=== PATIENT | male | born 1955 | race Caucasian/White ===

== ENCOUNTER 2018-11-08 13:17 | Emergency (ER) | payer MEDICARE, OTHER ==
[~2018-11-08] VITALS: Ht 180.3 cm; Wt 83.9 kg
[~2018-11-08 13:17] MED LIST: ADVAIR 500-501 EACH; AMLODIPINE BESY10 MG; CAL-CITRATE PL1 EACH; COMBIVENT RESPIM4 GM INH; DICLEGIS DR 101 EACH; DICLOFENAC SOD100 GM TOP; DOXYCYCLINE HY100 MG PO; FAMOTIDINE40 MG PO; FENTANYL1 EAC2 TD; FOSAMAX70 MG; GEMFIBROZIL600 MG; HYDROCHLOROTH12.5 MG; LISINOPRIL20 MG; NAPROSYN500 MG PO; PERCOCET 10-321 EACH PO; PREDNISONE20 MG PO; SPIRIVA18 MCG; ZOLOFT100 MG; [UNRECOGNIZED DRUG - OTHER]
[2018-11-08] MEDS ORDERED: ADVAIR 500-501 EACH INH ×2 (14:27→15:08)
[2018-11-08] MEDS ORDERED: VENTOLIN HFA18 GM INH (14:28)
[2018-11-08] MEDS ORDERED: DOXYCYCLINE HY100 MG PO (15:08)
[2018-11-08] MEDS ORDERED: PREDNISONE10 MG PO (15:08)
== END 2018-11-08 17:07 | disposition home or self-care (01) ==
LOC: ED 13:17
DX: J10.1 Influenza due to other identified influenza virus with other respiratory manifestations (principal); J44.9 Chronic obstructive pulmonary disease, unspecified; Z87.891 Personal history of nicotine dependence; Z88.5 Allergy status to narcotic agent; Z88.8 Allergy status to other drugs, medicaments and biological substances; Z79.899 Other long term (current) drug therapy
CPT/HCPCS: 71045; 87502; 94640; 94664; 99285-25; J7512

== ENCOUNTER 2020-04-13 03:00 | Emergency (ER) | payer MEDICARE, OTHER ==
[~2020-04-13] VITALS: Ht 180.3 cm; Wt 83.9 kg
[~2020-04-13 03:00] MED LIST changes: +ADVAIR 500-501 EACH INH; +PREDNISONE10 MG PO; +VENTOLIN HFA18 GM INH
[2020-04-13] MEDS ORDERED: LISINOPRIL20 MG PO (03:14)
--- NOTE | 2020-04-13 12:18 | EKG ---
[facility] [address] [facility] [facility] [place] [address] Signed Normal sinus rhythm Normal ECG No previous ECGs available Confirmed by SAGAR MURDOCK MD ([id number]) on 04/13/2020 12:17:53 PM Electronically Signed By: SAGAR MURDOCK MD 04/13/20 1218 PATIENT NAME: ALTON DOLAN Elina Electrocardiogram DATE OF : 51 PHYSICIAN: SAGAR MURDOCK MD REPORT #: [id number] REPORT IS CONFIDENTIAL AND NOT TO BE RELEASED WITHOUT AUTHORIZATION
== END 2020-04-13 03:33 | disposition home or self-care (01) ==
LOC: ED 03:00
DX: J44.1 Chronic obstructive pulmonary disease with (acute) exacerbation (principal); Z87.891 Personal history of nicotine dependence; Z88.6 Allergy status to analgesic agent; Z79.899 Other long term (current) drug therapy
CPT/HCPCS: 93005; 93010; 99284-25

== ENCOUNTER 2023-04-05 09:11 | Emergency (ER) | payer MEDICARE ==
[~2023-04-05] VITALS: Ht 180.3 cm; Wt 68.9 kg
--- OUTSIDE RECORDS SUMMARY | ~2023-04-05 | XMS | Continuity of Care Document ---
Demographics + + + | Address | [address] | | | [place] [address] | + + + | Preferred Language | Unknown | + + + | Marital Status | | + + + | Nondenominational Affiliation | Unknown | + + + | Race | White | + + + | Ethnic Group | Not or | + + + Author + + + | Author | [facility] | + + + | Organization | [facility] | + + + | Address | [address] | | | [place] [address] | + + + | Phone | | + + + Care Team Providers + + + + | Care Director Of Patient Care Name | Role | Phone | + + + + Unavailable | Unavailable | + + + + Unavailable | Unavailable | + + + + Allergies and Intolerances + + + + + + | date | description | facility | reaction | severity | + + + + + + | (no date) | Tramadol | [facility] | (no reaction) | (no severity) | | | | Loc | | | | | | Hospital | | | + + + + + + | (no date) | Gabapentin | [facility] | (no reaction) | (no severity) | | | | Loc | | | | | | Hospital | | | + + + + + + | (no date) | Tramadol | [facility] | (no reaction) | (no severity) | | | | Loc | | | | | | Hospital | | | + + + + + + | (no date) | Gabapentin | [facility] | (no reaction) | (no severity) | | | | Loc | | | | | | Hospital | | | + + + + + + | (no date) | Tramadol | [facility] | (no reaction) | (no severity) | | | | Loc | | | | | | Hospital | | | + + + + + + | (no date) | Nausea alone | [facility] | (no reaction) | (no severity) | | | | Loc | | | | | | Hospital | | | + + + + + + | (no date) | Gabapentin | [facility] | (no reaction) | (no severity) | | | | Loc | | | | | | Hospital | | | + + + + + + | (no date) | No Known Drug | [facility] | (no reaction) | (no severity) | | | Allergies | | | | + + + + + + | (no date) | tramadol | [facility] | (no reaction) | (no severity) | + + + + + + | (no date) | gabapentin | [facility] | (no reaction) | (no severity) | + + + + + + Encounters No information. Functional Status No information. Immunizations No information. Medications + + + + | date | description | facility | + + + + | 2023-02-23 00:00 | OXYCODONE | [facility] | | | HCL/ACETAMINOPHEN | | + + + + | 2014-03-16 00:00 | IPRATROPIUM/ALBUTEROL | [facility] | | | SULFATE | | + + + + | 2018-11-08 00:00 | DOXYCYCLINE HYCLATE | [facility] | + + + + | 2014-03-16 00:00 | DOXYCYCLINE HYCLATE | [facility] | + + + + | 2023-02-23 00:00 | FENTANYL (75 MCG/HR) | [facility] | + + + + | 2018-11-08 00:00 | predniSONE | [facility] | + + + + | 2023-02-23 00:00 | SERTRALINE HCL | [facility] | + + + + | 2023-02-23 00:00 | FAMOTIDINE | [facility] | + + + + | 2023-02-23 00:00 | AMLODIPINE BESYLATE | [facility] | + + + + | 2023-02-23 00:00 | GEMFIBROZIL | [facility] | + + + + | 2014-03-16 00:00 | predniSONE | [facility] | + + + + | 2023-02-23 00:00 | LISINOPRIL | [facility] | + + + + | 2023-02-23 00:00 | HYDROCHLOROTHIAZIDE | [facility] | + + + + | 2023-02-23 00:00 | CALCIUM CITRATE/VITAMIN D2 | [facility] | | | | | + + + + | 2023-02-23 00:00 | TIOTROPIUM BROMIDE | [facility] | + + + + | 2023-02-23 00:00 | DICLOFENAC SODIUM | [facility] | + + + + | 2023-02-23 00:00 | ALBUTEROL SULFATE | [facility] | + + + + | 2023-02-23 00:00 | METOPROLOL TARTRATE | [facility] | + + + + | 2018-11-08 00:00 | FLUTICASONE/SALMETEROL | [facility] | + + + + | 2023-02-23 00:00 | FLUTICASONE/SALMETEROL | [facility] | + + + + | 2023-02-23 00:00 | ALENDRONATE SODIUM | [facility] | + + + + Problems + + + + | date | description | facility | + + + + | 2018-11-08 00:00 | Influenza | [facility] | + + + + | 2020-04-13 00:00 | Acute exacerbation of | [facility] | | | chronic obstructive | | | | pulmonary disease | | + + + + | 2023-02-23 00:00 | Dehydration | [facility] | + + + + | 2023-02-23 18:53 | DEHYDRATION | [facility] | + + + + | 2023-02-23 18:53 | Essential (primary) | [facility] | | | hypertension | | + + + + | 2023-02-23 18:53 | HYPERTENSIVE URGENCY | [facility] | + + + + | 2023-02-23 18:53 | CHRONIC OBSTRUCTIVE | [facility] | | | PULMONARY DISEASE, | | | | UNSPECIFIED | | + + + + | 2023-02-23 18:53 | PALPITATIONS | [facility] | + + + + | 2023-02-23 18:53 | AGILE COACH (CURRENT) USE OF | [facility] | | | INHALED STEROIDS | | + + + + | 2023-02-23 18:53 | OTHER SHELTER (CURRENT) | [facility] | | | DRUG THERAPY | | + + + + | 2023-02-23 18:53 | 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 Results/Labs +--------+--------+ +---------+--------+---------+ | test | date | facility | value | unit | notes | +--------+--------+ +---------+--------+---------+ + + | Result panel 1 | + + + + + +-------+ + + | | 2023-02-23 | [facility] | 7.5 | (missing) | (missing) | | (unavailable | 19:08:07 | Loc | | | | | ) | | Hospital | | | | + + + +-------+ + + + + | Result panel 2 | + + + + + +--------+ + + | | 2023-02-23 | [facility] | 63.9 | (missing) | (missing) | | (unavailable | 19:08:07 | Loc | | | | | ) | | Hospital | | | | + + + +--------+ + + + + | Result panel 3 | + + + + + +--------+ + + | | 2023-02-23 | [facility] | 24.9 | (missing) | (missing) | | (unavailable | 19:08:07 | Loc | | | | | ) | | Hospital | | | | + + + +--------+ + + + + | Result panel 4 | + + + + + +--------+ + + | | 2023-02-23 | [facility] | 10.1 | (missing) | (missing) | | (unavailable | 19:08:07 | Loc | | | | | ) | | Hospital | | | | + + + +--------+ + + + + | Result panel 5 | + + + + + +-------+ + + | | 2023-02-23 | [facility] | 0.5 | (missing) | (missing) | | (unavailable | 19:08:07 | Loc | | | | | ) | | Hospital | | | | + + + +-------+ + + + + | Result panel 6 | + + + + + +-------+ + + | | 2023-02-23 | [facility] | 0.6 | (missing) | (missing) | | (unavailable | 19:08:07 | Loc | | | | | ) | | Hospital | | | | + + + +-------+ + + + + | Result panel 7 | + + + + + +--------+ + + | | 2023-02-23 | [facility] | 0.64 | (missing) | (missing) | | (unavailable | 19:08:07 | Loc | | | | | ) | | Hospital | | | | + + + +--------+ + + + + | Result panel 8 | + + + + + +--------+ + + | | 2023-02-23 | [facility] | 4.39 | (missing) | (missing) | | (unavailable | 19:08:07 | Loc | | | | | ) | | Hospital | | | | + + + +--------+ + + + + | Result panel 9 | + + + + + +-------+---------+ + | | 2023-02-23 | [facility] | 126 | mg/dL | (missing) | | (unavailable | 19:08:07 | Loc | | | | | ) | | Hospital | | | | + + + +-------+---------+ + + + | Result panel 10 | + + + + + +------+---------+ + | | 2023-02-23 | [facility] | 22 | mg/dL | (missing) | | (unavailable | ::07 | Loc | | | | | ) | | Hospital | | | | + + + +------+---------+ + + + | Result panel 11 | + + + + + +--------+ + + | | 2023-02-23 | [facility] | 13.5 | (missing) | (missing) | | (unavailable | 19:08:07 | Loc | | | | | ) | | Hospital | | | | + + + +--------+ + + + + | Result panel 12 | + + + + + +--------+---------+ + | | 2023-02-23 | [facility] | 0.96 | mg/dL | (missing) | | (unavailable | 19:08:07 | Loc | | | | | ) | | Hospital | | | | + + + +--------+---------+ + + + | Result panel 13 | + + + + + +------+ + + | | 2023-02-23 | [facility] | 86 | (missing) | (missing) | | (unavailable | 19:08:07 | Loc | | | | | ) | | Hospital | | | | + + + +------+ + + + + | Result panel 14 | + + + + + +---------+ + + | | 2023-02-23 | [facility] | 22.91 | (missing) | (missing) | | (unavailable | 19:08:07 | Loc | | | | | ) | | Hospital | | | | + + + +---------+ + + + + | Result panel 15 | + + + + + +-------+ + + | | 2023-02-23 | [facility] | 137 | (missing) | (missing) | | (unavailable | 19:08:07 | Loc | | | | | ) | | Hospital | | | | + + + +-------+ + + + + | Result panel 16 | + + + + + +-------+ + + | | 2023-02-23 | [facility] | 3.7 | (missing) | (missing) | | (unavailable | 19:08:07 | Loc | | | | | ) | | Hospital | | | | + + + +-------+ + + + + | Result panel 17 | + + + + + +-------+ + + | | 2023-02-23 | [facility] | 101 | (missing) | (missing) | | (unavailable | 19:08:07 | Loc | | | | | ) | | Hospital | | | | + + + +-------+ + + + + | Result panel 18 | + + + + + +------+ + + | | 2023-02-23 | [facility] | 23 | (missing) | (missing) | | (unavailable | 19:08:07 | Loc | | | | | ) | | Hospital | | | | + + + +------+ + + + + | Result panel 19 | + + + + + +--------+ + + | | 2023-02-23 | [facility] | 16.7 | (missing) | (missing) | | (unavailable | 19:08:07 | Loc | | | | | ) | | Hospital | | | | + + + +--------+ + + + + | Result panel 20 | + + + + + +-------+---------+ + | | 2023-02-23 | [facility] | 9.0 | mg/dL | (missing) | | (unavailable | 19:08:07 | Loc | | | | | ) | | Hospital | | | | + + + +-------+---------+ + + + | Result panel 21 | + + + + + +-------+---------+ + | | 2023-02-23 | [facility] | 2.1 | mg/dL | (missing) | | (unavailable | 19:08:07 | Loc | | | | | ) | | Hospital | | | | + + + +-------+---------+ + + + | Result panel 22 | + + + + + +--------+ + + | | 2023-02-23 | [facility] | 41.8 | (missing) | (missing) | | (unavailable | 19:08:07 | Loc | | | | | ) | | Hospital | | | | + + + +--------+ + + + + | Result panel 23 | + + + + + +-------+ + + | | 2023-02-23 | [facility] | 8.5 | (missing) | (missing) | | (unavailable | 19:08:07 | Loc | | | | | ) | | Hospital | | | | + + + +-------+ + + + + | Result panel 24 | + + + + + +-------+ + + | | 2023-02-23 | [facility] | 4.4 | (missing) | (missing) | | (unavailable | 19:08:07 | Loc | | | | | ) | | Hospital | | | | + + + +-------+ + + + + | Result panel 25 | + + + + + +-------+ + + | | 2023-02-23 | [facility] | 4.1 | (missing) | (missing) | | (unavailable | 19:08:07 | Loc | | | | | ) | | Hospital | | | | + + + +-------+ + + + + | Result panel 26 | + + + + + +--------+ + + | | 2023-02-23 | [facility] | 1.07 | (missing) | (missing) | | (unavailable | 19:08:07 | Loc | | | | | ) | | Hospital | | | | + + + +--------+ + + + + | Result panel 27 | + + + + + +-------+ + + | | 2023-02-23 | [facility] | 0.9 | (missing) | (missing) | | (unavailable | 19:08:07 | Loc | | | | | ) | | Hospital | | | | + + + +-------+ + + + + | Result panel 28 | + + + + + +------+ + + | | 2023-02-23 | [facility] | 31 | (missing) | (missing) | | (unavailable | 19::07 | Loc | | | | | ) | | Hospital | | | | + + + +------+ + + + + | Result panel 29 | + + + + + +------+ + + | | 2023-02-23 | [facility] | 21 | (missing) | (missing) | | (unavailable | 19::07 | Loc | | | | | ) | | Hospital | | | | + + + +------+ + + + + | Result panel 30 | + + + + + +------+ + + | | 2023-02-23 | [facility] | 87 | (missing) | (missing) | | (unavailable | ::07 | Loc | | | | | ) | | Hospital | | | | + + + +------+ + + + + | Result panel 31 | + + + + + +--------+ + + | | 2023-02-23 | [facility] | 11.6 | (missing) | (missing) | | (unavailable | 19:08:07 | Loc | | | | | ) | | Hospital | | | | + + + +--------+ + + + + | Result panel 32 | + + + + + +---------+ + + | | 2023-02-23 | [facility] | 1.801 | (missing) | (missing) | | (unavailable | 19:08:07 | Loc | | | | | ) | | Hospital | | | | + + + +---------+ + + + + | Result panel 33 | + + + + + +--------+ + + | | 2023-02-23 | [facility] | 95.3 | (missing) | (missing) | | (unavailable | 19:08:07 | Loc | | | | | ) | | Hospital | | | | + + + +--------+ + + + + | Result panel 34 | + + + + + +--------+ + + | | 2023-02-23 | [facility] | 30.7 | (missing) | (missing) | | (unavailable | 19:08:07 | Loc | | | | | ) | | Hospital | | | | + + + +--------+ + + + + | Result panel 35 | + + + + + +--------+ + + | | 2023-02-23 | [facility] | 32.2 | (missing) | (missing) | | (unavailable | 19:08:07 | Loc | | | | | ) | | Hospital | | | | + + + +--------+ + + + + | Result panel 36 | + + + + + +--------+ + + | | 2023-02-23 | [facility] | 13.4 | (missing) | (missing) | | (unavailable | 19:08:07 | Loc | | | | | ) | | Hospital | | | | + + + +--------+ + + + + | Result panel 37 | + + + + + +-------+ + + | | 2023-02-23 | [facility] | 280 | (missing) | (missing) | | (unavailable | 19:08:07 | Loc | | | | | ) | | Hospital | | | | + + + +-------+ + + + + | Result panel 38 | + + + + + + + + + | | 2023-02-23 | [facility] | YELLOW | (missing) | (missing) | | (unavailable | 20:10:07 | Loc | | | | | ) | | Hospital | | | | + + + + + + + + + | Result panel 39 | + + + + + +---------+ + + | | 2023-02-23 | [facility] | CLEAR | (missing) | (missing) | | (unavailable | 20:10:07 | Loc | | | | | ) | | Hospital | | | | + + + +---------+ + + + + | Result panel 40 | + + + + + + + + + | | 2023-02-23 | [facility] | NEGATIVE | (missing) | (missing) | | (unavailable | 20:10:07 | Loc | | | | | ) | | Hospital | | | | + + + + + + + + + | Result panel 41 | + + + + + + + + + | | 2023-02-23 | [facility] | NEGATIVE | (missing) | (missing) | | (unavailable | 20:10:07 | Loc | | | | | ) | | Hospital | | | | + + + + + + + + + | Result panel 42 | + + + + + + + + + | | 2023-02-23 | [facility] | NEGATIVE | (missing) | (missing) | | (unavailable | 20:10:07 | Loc | | | | | ) | | Hospital | | | | + + + + + + + + + | Result panel 43 | + + + + + + + + + | | 2023-02-23 | [facility] | >=1.030 | (missing) | (missing) | | (unavailable | 20:10:07 | Loc | | | | | ) | | Hospital | | | | + + + + + + + + + | Result panel 44 | + + + + + + + + + | | 2023-02-23 | [facility] | NEGATIVE | (missing) | (missing) | | (unavailable | 20:10:07 | Loc | | | | | ) | | Hospital | | | | + + + + + + + + + | Result panel 45 | + + + + + +-------+ + + | | 2023-02-23 | [facility] | 5.0 | (missing) | (missing) | | (unavailable | 20:10:07 | Loc | | | | | ) | | Hospital | | | | + + + +-------+ + + + + | Result panel 46 | + + + + + + + + + | | 2023-02-23 | [facility] | NEGATIVE | (missing) | (missing) | | (unavailable | 20:10:07 | Loc | | | | | ) | | Hospital | | | | + + + + + + + + + | Result panel 47 | + + + + + + + + + | | 2023-02-23 | [facility] | NORMAL | (missing) | (missing) | | (unavailable | 20:10:07 | Loc | | | | | ) | | Hospital | | | | + + + + + + + + + | Result panel 48 | + + + + + + + + + | | 2023-02-23 | [facility] | NEGATIVE | (missing) | (missing) | | (unavailable | 20:10:07 | Loc | | | | | ) | | Hospital | | | | + + + + + + + + + | Result panel 49 | + + + + + + + + + | | 2023-02-23 | [facility] | NEGATIVE | (missing) | (missing) | | (unavailable | 20:10:07 | Loc | | | | | ) | | Hospital | | | | + + + + + + + + + | Result panel 50 | + + + + + + + + + | | 2023-02-23 | [facility] | NEGATIVE | (missing) | (missing) | | (unavailable | 20:10:07 | Loc | | | | | ) | | Hospital | | | | + + + + + + + + + | Result panel 51 | + + + + + + + + + | | 2023-02-23 | [facility] | NEGATIVE | (missing) | (missing) | | (unavailable | 20:10:07 | Loc | | | | | ) | | Hospital | | | | + + + + + + + + + | Result panel 52 | + + + + + + + + + | | 2023-02-23 | [facility] | NEGATIVE | (missing) | (missing) | | (unavailable | 20:10:07 | Loc | | | | | ) | | Hospital | | | | + + + + + + + + + | Result panel 53 | + + + + + + + + + | | 2023-02-23 | [facility] | NEGATIVE | (missing) | (missing) | | (unavailable | 20:10:07 | Loc | | | | | ) | | Hospital | | | | + + + + + + + + + | Result panel 54 | + + + + + + + + + | | 2023-02-23 | [facility] | NEGATIVE | (missing) | (missing) | | (unavailable | 20:10:07 | Loc | | | | | ) | | Hospital | | | | + + + + + + + + + | Result panel 55 | + + + + + + + + + | | 2023-02-23 | [facility] | NEGATIVE | (missing) | (missing) | | (unavailable | 20:10:07 | Loc | | | | | ) | | Hospital | | | | + + + + + + + + + | Result panel 56 | + + + + + + + + + | | 2023-02-23 | [facility] | NEGATIVE | (missing) | (missing) | | (unavailable | 20:10:07 | Loc | | | | | ) | | Hospital | | | | + + + + + + + + + | Result panel 57 | + + + + + + + + + | | 2023-02-23 | [facility] | POSITIVE | (missing) | (missing) | | (unavailable | 20:10:07 | Loc | | | | | ) | | Hospital | | | | + + + + + + + + + | Result panel 58 | + + + + + + + + + | | 2023-02-23 | [facility] | NEGATIVE | (missing) | (missing) | | (unavailable | 20:10:07 | Loc | | | | | ) | | Hospital | | | | + + + + + + + + + | Result panel 59 | + + + + + + + + + | | 2023-02-23 | [facility] | NEGATIVE | (missing) | (missing) | | (unavailable | 20:10:07 | Loc | | | | | ) | | Hospital | | | | + + + + + + + + + | Result panel 60 | + + + + + + + + + | | 2023-02-23 | [facility] | POSITIVE | (missing) | (missing) | | (unavailable | 20:10:07 | Loc | | | | | ) | | Hospital | | | | + + + + + + + + + | Result panel 61 | + + + + + + + + + | | 2023-02-23 | [facility] | NEGATIVE | (missing) | (missing) | | (unavailable | 20:10:07 | Loc | | | | | ) | | Hospital | | | | + + + + + + + + + | Result panel 62 | + + + + + + + + + | | 2023-02-23 | [facility] | NEGATIVE | (missing) | (missing) | | (unavailable | 20:10:07 | Loc | | | | | ) | | Hospital | | | | + + + + + + + Social History No information. Vital Signs + + + +---------+ | date | measurement | value | units | + + + +---------+ | 2023-02-23 00:00 | BMI | 25.8 | kg/m2 | + + + +---------+ | 2023-02-23 00:00 | BP_diastolic | 107 | mmHg | + + + +---------+ | 2023-02-23 00:00 | BP_systolic | 187 | mmHg | + + + +---------+ | 2023-02-23 00:00 | heart_rate | 98 | /min | + + + +---------+ | 2023-02-23 00:00 | height_metric | 180.34 | cm | + + + +---------+ | 2023-02-23 00:00 | height_standard | 71 | in | + + + +---------+ | 2023-02-23 00:00 | o2_saturation | 100 | % | + + + +---------+ | 2023-02-23 00:00 | respiration_rate | 18 | /min | + + + +---------+ | 2023-02-23 00:00 | temperature_metric | 37.06 | C | | | | | | + + + +---------+ | 2023-02-23 00:00 | | 98.7 | F | | | temperature_standar | | | | | d | | | + + + +---------+ | 2023-02-23 00:00 | weight_metric | 83.91 | kg | + + + +---------+ | 2023-02-23 00:00 | weight_metric | 83.92 | kg | + + + +---------+ | 2023-02-23 00:00 | weight_standard | 185 | lb | + + + +---------+"
--- OUTSIDE RECORDS SUMMARY | ~2023-04-05 | XMS | Continuity of Care Document ---
Demographics + + + | Address | [address] | | | [place] [address] | + + + | Preferred Language | Unknown | + + + | Marital Status | | + + + | Latter-Day Affiliation | Unknown | + + + | Race | White | + + + | Ethnic Group | Not or | + + + Author + + + | Author | [facility] | + + + | Organization | [facility] | + + + | Address | [address] | | | [place] [address] | + + + | Phone | | + + + Care Team Providers + + + + | Care Explosive Technician Name | Role | Phone | + [...] + | 2023-02-23 00:00 | OXYCODONE | [facility] | | | HCL/ACETAMINOPHEN | | + + + + | 2014-03-16 00:00 | IPRATROPIUM/ALBUTEROL | [facility] | | | SULFATE | | + + + + | 2018-11-08 00:00 | DOXYCYCLINE HYCLATE | [facility] | + + + + | 2014-03-16 00:00 | DOXYCYCLINE HYCLATE | [facility] | + + + + | 2023-02-23 00:00 | FENTANYL (75 MCG/HR) | [facility] | + + + + | 2018-11-08 00:00 | predniSONE | [facility] | + + + + | 2023-02-23 00:00 | SERTRALINE HCL | [facility] | + + + + | 2023-02-23 00:00 | FAMOTIDINE | [facility] | + + + + | 2023-02-23 00:00 | AMLODIPINE BESYLATE | [facility] | + + + + | 2023-02-23 00:00 | GEMFIBROZIL | [facility] | + + + + | 2014-03-16 00:00 | predniSONE | [facility] | + + + + | 2023-02-23 00:00 | LISINOPRIL | [facility] | + + + + | 2023-02-23 00:00 | HYDROCHLOROTHIAZIDE | [facility] | + + + + | 2023-02-23 00:00 | CALCIUM CITRATE/VITAMIN D2 | [facility] | | | | | + + + + | 2023-02-23 00:00 | TIOTROPIUM BROMIDE | [facility] | + + + + | 2023-02-23 00:00 | DICLOFENAC SODIUM | [facility] | + + + + | 2023-02-23 00:00 | ALBUTEROL SULFATE | [facility] | + + + + | 2023-02-23 00:00 | METOPROLOL TARTRATE | [facility] | + + + + | 2018-11-08 00:00 | FLUTICASONE/SALMETEROL | [facility] | + + + + | 2023-02-23 00:00 | FLUTICASONE/SALMETEROL | [facility] | + + + + | 2023-02-23 00:00 | ALENDRONATE SODIUM | [facility] | + + + + Problems + + + + | date | description | facility | + + + + | 2018-11-08 00:00 | Influenza | [facility] | + + + + | 2020-04-13 00:00 | Acute exacerbation of | [facility] | | | chronic obstructive | | | | pulmonary disease | | + + + + | 2023-02-23 00:00 | Dehydration | [facility] | + + + + | [...] + + + | 2023-02-23 18:53 | CONTINUOUS IMPROVEMENT BLACK BELT (CURRENT) USE OF | [facility] | | | INHALED STEROIDS | | + + + + | 2023-02-23 18:53 | OTHER INTERMEDIATE (CURRENT) | [facility] | | | DRUG [...]
[~2023-04-05 09:11] MED LIST changes: +LISINOPRIL20 MG PO; +METOPROLOL TART50 MG PO
[2023-04-05] MEDS ORDERED: PREDNISONE20 MG PO (11:13)
[2023-04-05] MEDS ORDERED: LISINOPRIL20 MG PO (11:13)
[2023-04-05] MEDS ORDERED: VENTOLIN HFA18 GM INH (11:13)
[2023-04-05] MEDS ORDERED: METOPROLOL SUCC50 MG PO (11:13)
[2023-04-05 11:25] VITALS: BP 177/106
--- NOTE | 2023-04-06 14:19 | EKG ---
[facility] [address] [facility] [place] [address] Signed Sinus tachycardia Otherwise normal ECG When compared with ECG of 23-FEB-2023 18:57, No significant change was found Confirmed by Mamadou Alatorre MD () on 04/06/2023 2:19:09 PM Electronically Signed By: MAMADOU ALATORRE MD 04/06/23 1419 PATIENT NAME: MAGDALENOALTON Elina Electrocardiogram DATE OF : 51 PHYSICIAN: MAMADOU ALATORRE MD REPORT #: [id number] REPORT IS CONFIDENTIAL AND NOT TO BE RELEASED WITHOUT AUTHORIZATION
== END 2023-04-05 11:25 | disposition home or self-care (01) ==
LOC: ED 09:11
DX: J44.9 Chronic obstructive pulmonary disease, unspecified (principal); I10 Essential (primary) hypertension; Z87.891 Personal history of nicotine dependence; Z88.8 Allergy status to other drugs, medicaments and biological substances; Z88.5 Allergy status to narcotic agent; Z79.899 Other long term (current) drug therapy
CPT/HCPCS: 36415; 71045; 80053; 83735; 84484; 85025; 93005; 93010; 94640; 94664; 99285-25; A9270

== ENCOUNTER 2024-12-17 12:00 | Emergency (ER) | payer MEDICARE ==
[~2024-12-17] VITALS: Ht 180.3 cm; Wt 73.9 kg
[~2024-12-17 12:00] MED LIST changes: +METOPROLOL SUCC50 MG PO
[2024-12-17] MEDS ORDERED: ALBUTEROL/IPRATROPIUM 3 ML NEB INH PRN (12:15)
[2024-12-17 12:40] LABS: BASOPHILS 0.7 % (0-2); EOSINOPHILS 0.8 % (0-6); HEMATOCRIT 44.3 % (35.0-50.0); HEMOGLOBIN 14.8 g/dL (12.0-18.0); LYMPHOCYTES 29.6 % (24-44); MCH 31.4 (27-36); MCHC 33.4 g/dl (30-36); MCV 94.1 fl (81-99); MONOCYTES 11.8 % (0-12); NEUTROPHILS 57.1 % (39-80); PLATELET COUNT 259 K/uL (140-440); RBC 4.71 M/ul (4.3-5.7); RDW 13.4 (10.5-15.0)
[2024-12-17] MEDS ORDERED: predniSONE 20 MG TAB PO ONE (12:45)
[2024-12-17] MEDS ORDERED: ALBUTEROL SULFATE 0.083% 3 ML VIAL INH ONE (12:45)
[2024-12-17 12:57] LABS: ALBUMIN/GLOBULIN RATIO 1.05 (1.1-2.4); ANION GAP 11.9 (7-21); BILIRUBIN, TOTAL 1.4 mg/dL (0.2-1.0); BUN/CREATININE RATIO 18.18 (6.0-28.6); CALCIUM 9.3 mg/dL (8.5-10.1); CREATININE, SERUM 0.99 mg/dL (0.70-1.30); MAGNESIUM 2.3 mg/dL (1.8-2.4); POTASSIUM 3.9 mmol/L (3.5-5.1); PROTEIN, TOTAL 7.8 g/dL (6.4-8.2)
[2024-12-17] MEDS ORDERED: PREDNISONE20 MG PO (13:18)
[2024-12-17 13:28] VITALS: BP 172/112
--- NOTE | 2024-12-18 10:56 | EKG ---
[facility] [address] [facility] [place] [address] Signed Normal sinus rhythm Minimal voltage criteria for LVH, may be normal variant ( Sokolow-Hanson ) Borderline ECG When compared with ECG of 05-APR-2023 09:11, No significant change was found Confirmed by Catarina Russ DO ([id number]) on 12/18/2024 10:56:09 AM Electronically Signed By: CATARINA RUSS DO 12/18/24 1056 PATIENT NAME: ALTON DOLAN Electrocardiogram DATE OF : 51 PHYSICIAN: CATARINA RUSS DO REPORT #: [id number] REPORT IS CONFIDENTIAL AND NOT TO BE RELEASED WITHOUT AUTHORIZATION
== END 2024-12-17 13:28 | disposition home or self-care (01) ==
LOC: ED 12:00
PROVIDERS: Emergency Medicine
DX: J44.1 Chronic obstructive pulmonary disease with (acute) exacerbation (principal); I10 Essential (primary) hypertension; Z88.8 Allergy status to other drugs, medicaments and biological substances; Z88.5 Allergy status to narcotic agent; Z87.891 Personal history of nicotine dependence
CPT/HCPCS: 36415; 71045; 80053; 83735; 84484; 85025; 93005; 93010; 94640; 99285-25; J7512